=== PATIENT | female | born 1950 | race Caucasian/White ===

== ENCOUNTER 2018-09-07 10:54 | Emergency (ER) | payer SELFPAY ==
[~2018-09-07] VITALS: Ht 162.6 cm; Wt 70.0 kg
[2018-09-07] MEDS ORDERED: IBUPROFEN 600MG TABLET PO ONE (12:00)
[2018-09-07] MEDS ORDERED: HYDROCODONE/ACETAMINOPHEN 5/325MG TABLET PO ONE (12:00)
[2018-09-07 15:59] VITALS: BP 144/61
== END 2018-09-07 16:05 | disposition home or self-care (01) ==
LOC: ER 10:54
DX: S40.021A Contusion of right upper arm, initial encounter (principal); S20.229A Contusion of unspecified back wall of thorax, initial encounter; I10 Essential (primary) hypertension; Z98.890 Other specified postprocedural states; V79.60XA Unspecified bus occupant injured in collision with unspecified motor vehicles in traffic accident, initial encounter; Y93.89 Activity, other specified; Y92.89 Other specified places as the place of occurrence of the external cause; Y99.8 Other external cause status
CPT/HCPCS: 73030; 73060; 74176; 99284